=== PATIENT | female | born 1940 | race Caucasian/White ===

== ENCOUNTER 2019-12-14 14:23 | Emergency (ER) | payer MEDICARE, BC ==
[~2019-12-14 14:23] MED LIST: Iopamidol-370 76% 500 ML 1 ML ONE
[2019-12-14 14:59] LABS: Bilirubin Negative (Negative); Blood, Urine Negative (Negative); Clarity Clear (Clear); Glucose, Urine (Dipstick) Normal (Negative); Ketone, Urine Negative (Negative); Leukocyte Negative Leu/uL (Negative); Nitrite Negative (Negative); Protein, Urine (Dipstick) Negative (Neg-Trace); Specific Gravity, Urine 1.002 (1.002-1.036); Urobilinogen Normal mg/dL (Less than 2); pH, Urine 5.5 (5.0-9.0)
[2019-12-14 15:13] LABS: #Basophils 0.1 thou/uL (0.0-0.2); #Eosinphils 0.1 thou/uL (0.0-0.7); #Lymphocytes 1.3 thou/uL (1.20-3.40); #Monocytes 0.5 thou/uL (0.11-0.59); #Neutrophils 4.7 thou/uL (1.40-6.50); %Basophils 0.8 % (0.0-1.0); %Lymphocytes 18.9 % (21.0-51.0); %Neutrophils 70.3 % (42.0-75.0); Hemoglobin 14.9 g/dL (12.0-16.0); Mean Corpuscular HGB CONC 34.9 g/dL (32.0-36.0); Mean Corpuscular Hemoglobin 34.1 pg (27.0-31.0); Mean Corpuscular Volume 97.7 fL (78.0-98.0); Platelet Count 253 thou/uL (130-400); RBC Distribution Width 12.1 % (11.5-14.5); Red Blood Cell (RBC) Count 4.38 mill/uL (4.20-5.40); White Blood Cell (WBC) Count 6.7 thou/uL (4.8-10.8)
[2019-12-14 15:36] LABS: ALT (SGPT) 14 U/L (8-55); AST (SGOT) 20 U/L (5-34); Albumin 4.2 g/dL (3.4-4.8); Alkaline Phosphatase 106 U/L (40-110); Anion Gap 13 mmol/L (10-20); BUN (Urea Nitrogen) 13 mg/dL (9.8-20.1); Bilirubin, Total 0.9 mg/dL (0.2-1.2); Calc. Creatinine Clearance 0 mL/min (70-130); Calcium 8.9 mg/dL (7.8-10.44); Carbon Dioxide 25 mmol/L (23-31); Chloride 105 mmol/L (98-107); Estimated GFR-MDRD 56; Globulin 3.4 g/dL (2.4-3.5); Glucose 93 mg/dL (83-110); Potassium 3.4 mmol/L (3.5-5.1); Protein, Total 7.6 g/dL (6.0-8.3); Sodium 140 mmol/L (136-145)
--- NOTE | 2019-12-14 16:38 | CT ---
CT Abdomen Pelvis W Con History: Injury Comparison: CT abdomen and pelvis 2009 Findings: Mild scarring lung bases. No pericardial effusion. Nondisplaced right L1 transverse process fracture. No SI joint widening. Obturator rings are intact. Left femoral head and neck is intact. Intact right hip arthroplasty. [place] effect of the intrahepatic and extrahepatic biliary system. Prior cholecystectomy. Spleen a nd pancreas unremarkable along with the adrenal glands. No acute renal injury. Extensive diverticular disease sigmoid colon without active current inflammation. No mesenteric hematoma. No acute lumbar spine fracture. No acute traumatic facet joint widening. Mode rate narrowing of the L3-L5 interspinous space. Impression: 1. Nondisplaced right L1 transverse process fracture. 2. Mild bibasilar pulmonary fibrosis. 3. No evidence for solid organ injury within the abdomen or pelvis. 4. Very faint edema within the distal small bowel mesentery felt to be chronic given the similar appe arance back in 2009.
== END 2019-12-14 17:59 | disposition home or self-care (01) ==
LOC: ERS 14:23
DX: S22.42XA Multiple fractures of ribs, left side, initial encounter for closed fracture (principal); S32.019A Unspecified fracture of first lumbar vertebra, initial encounter for closed fracture; I10 Essential (primary) hypertension; Z87.891 Personal history of nicotine dependence; V80.010A Animal-rider injured by fall from or being thrown from horse in noncollision accident, initial encounter
CPT/HCPCS: 74177; 80053; 81003; 85025; 87086; Q9967

== ENCOUNTER 2020-05-13 10:17 | Outpatient (CLI) | payer MEDICARE, BC ==
[2020-05-13 12:12] LABS: #Basophils 0.1 10x3/uL (0.0-0.2); #Eosinphils 0.1 10x3/uL (0.0-0.5); #Monocytes 0.4 10x3/uL (0.0-1.1); #Neutrophils 4.9 10x3/uL (1.5-8.4); %Basophils 0.7 % (0.0-2.0); %Eosinophils 1.5 % (0.0-6.0); %Lymphocytes 18.5 % (18.0-47.0); %Monocytes 6.1 % (0.0-10.0); %Neutrophils 72.9 % (40.0-75.0); Hemoglobin 13.8 g/dL (12.0-15.5); Mean Corpuscular HGB CONC 32.6 g/dL (32.0-36.0); Mean Corpuscular Hemoglobin 31.5 pg (27.0-33.0); Mean Corpuscular Volume 96.6 fl (81.6-98.3); Mean Platelet Volume 9.5 fl (7.4-10.4); Platelet Count 308 10x3/uL (150-450); RBC Distribution Width 12.8 % (11.5-14.5); Red Blood Cell (RBC) Count 4.38 10x6/uL (3.90-5.03); White Blood Cell (WBC) Count 6.7 10x3/uL (3.5-10.5)
[2020-05-13 18:22] LABS: SARS-CoV-2 PCR by NAA Not Detected (NotDetected)
== END 2020-05-13 10:18 | disposition home or self-care (01) ==
LOC: LABBT 10:17
PROVIDERS: ATTEND Orthopaedic Surgery Hand Surgery
DX: Z01.818 Encounter for other preprocedural examination (principal); M20.012 Mallet finger of left finger(s); Z20.822 Contact with and (suspected) exposure to COVID-19
CPT/HCPCS: 85025; 93005; U0003; U0005; 87635; 93010

== ENCOUNTER 2020-05-18 09:37 | Day surgery (SDC) | payer MEDICARE, BC ==
[2020-05-14 13:12] VITALS: BMI 24.1
[2020-05-18] MEDS ORDERED: Fentanyl 100 MCG/2 ML VIAL ONE (13:46)
[2020-05-18] MEDS ORDERED: PROPOFOL 200 MG/20 ML VIAL ONE (13:49)
[2020-05-18] MEDS ORDERED: PHENYLEPHRINE-NS 100 MCG/ML 10 ML SYRINGE ONE (13:49)
[2020-05-18] MEDS ORDERED: ePHEDrine 50 MG/ML VIAL ONE (13:49)
[2020-05-18] MEDS ORDERED: Ondansetron PF 4 MG/2 ML Vial ONE (13:49)
[2020-05-18] MEDS ORDERED: Dexamethasone 20 MG/5 ML VIAL ONE (13:49)
[2020-05-18] MEDS ORDERED: Lidocaine 1% PF 5 ML VIAL ONE (13:49)
[2020-05-18] MEDS ORDERED: Betamet Acet/Betamet Na Ph 30 MG/5 ML VIAL ONE (14:12)
[2020-05-18] MEDS ORDERED: Sodium Chloride 0.9% 10 ML ONE (14:12)
[2020-05-18] MEDS ORDERED: Bacitracin Zinc Ointment 30 gm TUBE ONE (14:12)
== END 2020-05-18 16:50 | disposition home or self-care (01) ==
LOC: SDC 09:37
PROVIDERS: ATTEND Orthopaedic Surgery Hand Surgery
PROC: 0LQ70ZZ Repair Right Hand Tendon, Open Approach (ICD-10-PCS; principal; 2020-05-18)
DX: M20.011 Mallet finger of right finger(s) (principal); S66.314A Strain of extensor muscle, fascia and tendon of right ring finger at wrist and hand level, initial encounter; S62.605A Fracture of unspecified phalanx of left ring finger, initial encounter for closed fracture; Z87.891 Personal history of nicotine dependence; Z88.5 Allergy status to narcotic agent; W55.19XA Other contact with horse, initial encounter
CPT/HCPCS: 76000; J0690; J0702; J1100; J2405; J2704; J3010; J3490

== ENCOUNTER 2021-12-14 10:22 | Inpatient (IN) | payer OTHER, MEDICARE, BC ==
[2021-12-14 10:42] LABS: #Eosinphils 0.2 thou/uL (0.0-0.7); #Monocytes 0.4 thou/uL (0.11-0.59); #Neutrophils 8.7 thou/uL (1.40-6.50); %Basophils 0.3 % (0.0-1.0); %Eosinophils 1.8 % (0.0-10.0); %Lymphocytes 9.9 % (21.0-51.0); %Monocytes 3.4 % (0.0-10.0); %Neutrophils 84.6 % (42.0-75.0); Hemoglobin 12.5 g/dL (12.0-16.0); Mean Corpuscular Hemoglobin 33.7 pg (27.0-31.0); Platelet Count 301 thou/uL (130-400); RBC Distribution Width 13.2 % (11.5-14.5); Red Blood Cell (RBC) Count 3.72 mill/uL (4.20-5.40); White Blood Cell (WBC) Count 10.3 thou/uL (4.8-10.8)
[2021-12-14 10:54] LABS: ALT (SGPT) 31 U/L (8-55); AST (SGOT) 34 U/L (5-34); Albumin 3.5 g/dL (3.4-4.8); Alkaline Phosphatase 83 U/L (40-110); Anion Gap 13 mmol/L (10-20); BUN (Urea Nitrogen) 13 mg/dL (9.8-20.1); Bilirubin, Total 0.7 mg/dL (0.2-1.2); Calc. Creatinine Clearance 0 mL/min (70-130); Calcium 8.3 mg/dL (7.8-10.44); Carbon Dioxide 23 mmol/L (23-31); Chloride 108 mmol/L (98-107); Estimated GFR 63; Globulin 2.8 g/dL (2.4-3.5); Glucose 156 mg/dL (83-110); Lipase 8 U/L (8-78); Potassium 3.7 mmol/L (3.5-5.1); Protein, Total 6.3 g/dL (5.8-8.1); Sodium 140 mmol/L (136-145)
[2021-12-14] MEDS ORDERED: Morphine 4 MG/ML VIAL ONE (11:25)
[2021-12-14] MEDS ORDERED: Ondansetron PF 4 MG/2 ML Vial ONE ×2 (11:25→17:03)
[2021-12-14 13:44] LABS: Phosphorus 2.7 mg/dL (2.3-4.7)
[2021-12-14] MEDS ORDERED: Ketorolac Tromethamine 30 MG/ML VIAL ONE (13:44)
[2021-12-14 13:45] LABS: Magnesium 1.6 mg/dL (1.6-2.6)
[2021-12-14 13:45] LABS: SARS-CoV-2 NAA Rapid Test DETECTED (NotDetected)
[2021-12-14] MEDS: Ketorolac Tromethamine 30 MG/ML VIAL IVP SCH ×2 (13:45→20:54)
[2021-12-14] MEDS ORDERED: Iopamidol 370 76% 50 ML VIAL FS ONE (14:30)
[2021-12-14] MEDS ORDERED: Ondansetron ODT 4 MG TAB PO PRN (15:54)
[2021-12-14] MEDS ORDERED: Dextrose 50% Abboject 50 ML SYRINGE SLOW IVP PRN (15:54)
[2021-12-14] MEDS ORDERED: Dextrose 5% in Water 1,000 ML IV PRN (15:54)
[2021-12-14] MEDS ORDERED: Morphine 2 MG/ML VIAL SLOW IVP PRN (15:54)
[2021-12-14] MEDS ORDERED: hydrALAZINE 20 MG/ML VIAL SLOW IVP PRN (15:54)
[2021-12-14] MEDS ORDERED: Ondansetron PF 4 MG/2 ML Vial IVP PRN (15:54)
[2021-12-14] MEDS ORDERED: Magnesium 2 GM/50 ML(in water) 2 GM in Premix Bag 1 BAG IVPB SCH (16:00)
[2021-12-14] MEDS ORDERED: TETANUS, DIPHTHERIA TOX,ADULT (TDVAX) 0.5 ML VIAL IM ONE (17:00)
[2021-12-14] MEDS ORDERED: Pantoprazole 40 MG VIAL IVP SCH (17:00)
[2021-12-14] MEDS ORDERED: Pantoprazole 40 MG VIAL ONE (17:15)
[2021-12-14] MEDS ORDERED: Potassium Phosphate 30 MMOL, Magnesium Sulfate 2 GM in Sodium Chloride 0.9% 250 ML IVPB SCH (17:15)
[2021-12-14] MEDS ORDERED: Acetaminophen W/ Codeine 5 ML UDCUP PO PRN (17:21)
[2021-12-14] MEDS ORDERED: Acetaminophen W/ Codeine 5 ML UDCUP PO SCH (17:30)
[2021-12-14 21:39] VITALS: BMI 23.6
[2021-12-15] MEDS: Acetaminophen W/ Codeine 5 ML UDCUP PO SCH ×7 (00:42→21:48)
[2021-12-15] MEDS: Ketorolac Tromethamine 30 MG/ML VIAL IVP SCH (00:43)
[2021-12-15 04:29] LABS: #Lymphocytes 1.2 thou/uL (1.20-3.40); #Monocytes 0.8 thou/uL (0.11-0.59); #Neutrophils 9.7 thou/uL (1.40-6.50); %Basophils 0.1 % (0.0-1.0); %Eosinophils 0.2 % (0.0-10.0); %Lymphocytes 10.4 % (21.0-51.0); %Monocytes 6.4 % (0.0-10.0); %Neutrophils 82.9 % (42.0-75.0); Hemoglobin 10.5 g/dL (12.0-16.0); Mean Corpuscular HGB CONC 32.5 g/dL (32.0-36.0); Mean Corpuscular Hemoglobin 33.7 pg (27.0-31.0); Mean Platelet Volume 7.5 fL (7.4-10.4); Platelet Count 193 thou/uL (130-400); RBC Distribution Width 13.5 % (11.5-14.5); Red Blood Cell (RBC) Count 3.11 mill/uL (4.20-5.40); White Blood Cell (WBC) Count 11.7 thou/uL (4.8-10.8)
[2021-12-15 04:39] LABS: Anion Gap 16 mmol/L (10-20); BUN (Urea Nitrogen) 22 mg/dL (9.8-20.1); Calc. Creatinine Clearance 42 mL/min (70-130); Calcium 8.2 mg/dL (7.8-10.44); Carbon Dioxide 18 mmol/L (23-31); Chloride 108 mmol/L (98-107); Estimated GFR 51; Glucose 138 mg/dL (83-110); Magnesium 2.4 mg/dL (1.6-2.6); Phosphorus 5.6 mg/dL (2.3-4.7); Potassium 5.4 mmol/L (3.5-5.1); Sodium 137 mmol/L (136-145)
[2021-12-15] MEDS ORDERED: Sodium Chloride 0.9% 500 ML IV SCH (07:00)
[2021-12-15] MEDS ORDERED: Polyethylene Glycol 3350 17 GM Packet PO SCH (09:00)
[2021-12-15] MEDS ORDERED: Pantoprazole 40 MG VIAL IVP SCH (09:00)
[2021-12-15] MEDS: Polyethylene Glycol 3350 17 GM Packet PO SCH (09:10)
[2021-12-15] MEDS: Senokot S 8.6-50 MG TAB PO SCH ×2 (09:11→21:49)
[2021-12-15 12:39] LABS: Anion Gap 19 mmol/L (10-20); BUN (Urea Nitrogen) 23 mg/dL (9.8-20.1); Calc. Creatinine Clearance 40 mL/min (70-130); Calcium 8.2 mg/dL (7.8-10.44); Carbon Dioxide 14 mmol/L (23-31); Chloride 108 mmol/L (98-107); Estimated GFR 47; Glucose 163 mg/dL (83-110); Potassium 4.7 mmol/L (3.5-5.1); Sodium 136 mmol/L (136-145)
[2021-12-15] MEDS ORDERED: Sodium Chloride 0.9% 1,000 ML IV SCH (13:15)
[2021-12-15 15:13] LABS: Bacteria/HPF None Seen HPF (None Seen); Bilirubin Negative (Negative); Blood, Urine 1+ (Negative); Clarity Clear (Clear); Glucose, Urine (Dipstick) Normal (Negative); Ketone, Urine Negative (Negative); Leukocyte Negative Leu/uL (Negative); Nitrite Negative (Negative); Protein, Urine (Dipstick) 20 mg/dL (Neg-Trace); Squamous Epithelial 0-3 HPF (0-3); Urobilinogen Normal mg/dL (Less than 2); WBC/HPF 0-3 HPF (0-3)
[2021-12-15 15:14] LABS: Specific Gravity, Urine 1.061 (1.002-1.036)
[2021-12-15 15:15] LABS: Urine Culture Reflex No No
[2021-12-15] MEDS: Cyclobenzaprine 10 MG TAB PO PRN (21:49)
[2021-12-16] MEDS: Acetaminophen W/ Codeine 5 ML UDCUP PO SCH ×7 (02:00→23:26)
[2021-12-16] MEDS ORDERED: Morphine 2 MG/ML VIAL SLOW IVP SCH (09:30)
[2021-12-16] MEDS: Senokot S 8.6-50 MG TAB PO SCH ×2 (09:50→21:28)
[2021-12-16] MEDS: Polyethylene Glycol 3350 17 GM Packet PO SCH (09:50)
[2021-12-16] MEDS: Cyclobenzaprine 10 MG TAB PO PRN (13:29)
[2021-12-16] MEDS ORDERED: Gabapentin 300 MG CAP PO SCH ×2 (17:06→21:00)
[2021-12-16] MEDS ORDERED: Gabapentin 100 MG CAP PO SCH (17:45)
[2021-12-17] MEDS: Acetaminophen W/ Codeine 5 ML UDCUP PO SCH ×3 (05:05→12:23)
[2021-12-17 05:56] LABS: #Eosinphils 0.3 thou/uL (0.0-0.7); #Monocytes 0.3 thou/uL (0.11-0.59); %Basophils 0.4 % (0.0-1.0); %Eosinophils 4.4 % (0.0-10.0); %Lymphocytes 15.3 % (21.0-51.0); %Monocytes 4.3 % (0.0-10.0); %Neutrophils 75.6 % (42.0-75.0); Hemoglobin 7.2 g/dL (12.0-16.0); Mean Corpuscular HGB CONC 33.3 g/dL (32.0-36.0); Mean Corpuscular Hemoglobin 34.8 pg (27.0-31.0); Mean Platelet Volume 7.4 fL (7.4-10.4); Platelet Count 124 thou/uL (130-400); RBC Distribution Width 13.2 % (11.5-14.5); Red Blood Cell (RBC) Count 2.08 mill/uL (4.20-5.40); White Blood Cell (WBC) Count 6.6 thou/uL (4.8-10.8)
[2021-12-17 06:14] LABS: Anion Gap 12 mmol/L (10-20); BUN (Urea Nitrogen) 20 mg/dL (9.8-20.1); Calc. Creatinine Clearance 55 mL/min (70-130); Calcium 8.2 mg/dL (7.8-10.44); Carbon Dioxide 24 mmol/L (23-31); Chloride 105 mmol/L (98-107); Estimated GFR 71; Glucose 109 mg/dL (83-110); Phosphorus 3.8 mg/dL (2.3-4.7); Potassium 4.5 mmol/L (3.5-5.1); Sodium 136 mmol/L (136-145)
[2021-12-17] MEDS ORDERED: Ferrous Sulfate 325 MG TAB PO SCH (08:00)
[2021-12-17 08:05] LABS: #Eosinphils 0.4 thou/uL (0.0-0.7); #Lymphocytes 1.2 thou/uL (1.20-3.40); #Monocytes 0.4 thou/uL (0.11-0.59); #Neutrophils 7.1 thou/uL (1.40-6.50); %Basophils 0.1 % (0.0-1.0); %Eosinophils 4.2 % (0.0-10.0); %Lymphocytes 13.4 % (21.0-51.0); %Monocytes 4.4 % (0.0-10.0); %Neutrophils 77.9 % (42.0-75.0); Mean Corpuscular HGB CONC 32.3 g/dL (32.0-36.0); Mean Corpuscular Hemoglobin 33.4 pg (27.0-31.0); Mean Platelet Volume 7.4 fL (7.4-10.4); Platelet Count 143 thou/uL (130-400); RBC Distribution Width 13.3 % (11.5-14.5); Red Blood Cell (RBC) Count 2.09 mill/uL (4.20-5.40); White Blood Cell (WBC) Count 9.1 thou/uL (4.8-10.8)
[2021-12-17] MEDS ORDERED: Ascorbic Acid 500 mg Chewable Tablet PO SCH (09:00)
[2021-12-17 09:08] VITALS: BP 106/71; TEMP 97.7
[2021-12-17] MEDS: Gabapentin 100 MG CAP PO SCH ×2 (09:33→18:13)
[2021-12-17] MEDS: Senokot S 8.6-50 MG TAB PO SCH (09:34)
[2021-12-17] MEDS: Polyethylene Glycol 3350 17 GM Packet PO SCH (09:34)
== END 2021-12-17 15:20 | DRG 963 ==
LOC: ERS 10:22 → ERHOLD 12:04 → IMCU/EMU 19:39 → SURG B 12-15 20:37
PROVIDERS: ADMIT Surgery; ATTEND Surgery
PROC: 0T9B70Z Drainage of Bladder with Drainage Device, Via Natural or Artificial Opening (ICD-10-PCS; principal; 2021-12-16)
DX: S06.6X1A Traumatic subarachnoid hemorrhage with loss of consciousness of 30 minutes or less, initial encounter (principal); U07.1 COVID-19; S27.0XXA Traumatic pneumothorax, initial encounter; S22.42XA Multiple fractures of ribs, left side, initial encounter for closed fracture; S32.592A Other specified fracture of left pubis, initial encounter for closed fracture; R40.2142 Coma scale, eyes open, spontaneous, at arrival to emergency department; R40.2362 Coma scale, best motor response, obeys commands, at arrival to emergency department; R40.2252 Coma scale, best verbal response, oriented, at arrival to emergency department; V80.010A Animal-rider injured by fall from or being thrown from horse in noncollision accident, initial encounter; Y93.52 Activity, horseback riding; S33.2XXA Dislocation of sacroiliac and sacrococcygeal joint, initial encounter; Z28.311 Partially vaccinated for COVID-19; I10 Essential (primary) hypertension; Z87.891 Personal history of nicotine dependence; Z98.51 Tubal ligation status; Z96.641 Presence of right artificial hip joint; Z90.49 Acquired absence of other specified parts of digestive tract; Z98.890 Other specified postprocedural states; Z98.49 Cataract extraction status, unspecified eye; K44.9 Diaphragmatic hernia without obstruction or gangrene; E87.5 Hyperkalemia; Y92.009 Unspecified place in unspecified non-institutional (private) residence as the place of occurrence of the external cause; Z88.5 Allergy status to narcotic agent
CPT/HCPCS: 36415; 70450; 71045; 71260; 72125; 72170; 74177; 80048; 80053; 81001; 83690; 83735; 84100; 85025; 90471; 93005; 94640; 94760; 96374; 96375; C9113; G0390; J1885; J2270; J2405; J3475; J7030; J7050; J7620; Q9967; U0002

== ENCOUNTER 2022-01-30 12:34 | Outpatient (CLI) | payer MEDICARE, BC | END 2022-01-30 12:35 | disposition home or self-care (01) | LOC: BICCT 12:34 | PROVIDERS: ATTEND Physician Assistant Surgical | DX: S22.069A Unspecified fracture of T7-T8 vertebra, initial encounter for closed fracture (principal); I60.9 Nontraumatic subarachnoid hemorrhage, unspecified; R10.2 Pelvic and perineal pain; S32.9XXD Fracture of unspecified parts of lumbosacral spine and pelvis, subsequent encounter for fracture with routine healing | CPT/HCPCS: 70450; 72072; 72170 ==

== ENCOUNTER 2023-09-05 08:41 | Outpatient (CLI) | payer MEDICARE | END 2023-09-05 08:42 | disposition home or self-care (01) | LOC: BICMAMMO 08:41 | PROVIDERS: ATTEND Internal Medicine | DX: Z12.31 Encounter for screening mammogram for malignant neoplasm of breast (principal); N63.21 Unspecified lump in the left breast, upper outer quadrant | CPT/HCPCS: 77063; 77067 ==

== ENCOUNTER 2023-09-11 08:18 | Outpatient (CLI) | payer MEDICARE | END 2023-09-11 08:19 | disposition home or self-care (01) | LOC: BICMAMMO 08:18 | PROVIDERS: ATTEND Internal Medicine | DX: N63.21 Unspecified lump in the left breast, upper outer quadrant (principal) | CPT/HCPCS: 76642; 77065; G0279 ==

== ENCOUNTER → 2023-09-18 | Day surgery (SDC) | payer MEDICARE | LOC: BICULT 12:37 | PROVIDERS: ATTEND Internal Medicine | PROC: 0HB5XZX Excision of Chest Skin, External Approach, Diagnostic (ICD-10-PCS; principal; 2023-09-18) | DX: C50.412 Malignant neoplasm of upper-outer quadrant of left female breast (principal); R92.8 Other abnormal and inconclusive findings on diagnostic imaging of breast | CPT/HCPCS: 19083; 88305; 88341; 88342 ==

== ENCOUNTER 2024-12-22 14:25 | Observation (INO) | payer MEDICARE ==
[~2024-12-22 14:25] MED LIST changes: -Iopamidol-370 76% 500 ML 1 ML ONE; +Iopamidol-370 76% 500 ML MDV (1 ML CHARGE) ONE
[2024-12-22 15:56] LABS: #Basophils Less than 0.03 10x3/uL (0.0-0.2); #Eosinophils 0.06 10x3/uL (0.0-0.7); #Monocytes 0.42 10x3/uL (0.11-0.59); #Neutrophils 3.92 10x3/uL (1.40-6.50); %Basophils 0.4 % (0.0-1.0); %Eosinophils 1.1 % (0.0-10.0); %Lymphocytes 18.7 % (21.0-51.0); %Monocytes 7.7 % (0.0-10.0); %Neutrophils 71.9 % (42.0-75.0); Hematocrit 41.3 % (36.0-47.0); Hemoglobin 13.5 g/dL (12.0-16.0); Mean Corpuscular Hemoglobin 30.9 pg (27.0-31.0); Mean Corpuscular Volume 94.5 fL (78.0-98.0); Platelet Count 297 10x3/uL (130-400); Red Blood Cell (RBC) Count 4.37 mill/uL (4.20-5.40); White Blood Cell (WBC) Count 5.45 10x3/uL (4.8-10.8)
[2024-12-22 16:10] LABS: INR-International Normal Ratio 1.0; Prothrombin Time 13.4 sec (12.0-14.7)
[2024-12-22 16:11] LABS: PTT 31.1 sec (22.9-36.1)
[2024-12-22 16:17] LABS: ALT (SGPT) 14 U/L (Less than 34); AST (SGOT) 34 U/L (11-34); Albumin 3.7 g/dL (3.1-4.5); Alkaline Phosphatase 85 U/L (40-110); Anion Gap 15 mmol/L (10-20); BUN (Urea Nitrogen) 23 mg/dL (9.8-20.1); Bilirubin, Total 0.4 mg/dL (0.3-1.2); Calc. Creatinine Clearance 0 mL/min (70-130); Calcium 9.2 mg/dL (7.8-10.44); Carbon Dioxide 25 mmol/L (23-31); Chloride 100 mmol/L (98-107); Globulin 4.1 g/dL (2.4-3.5); Glucose 92 mg/dL (83-110); Potassium 3.9 mmol/L (3.5-5.1); Sodium 136 mmol/L (136-145)
[2024-12-22] MEDS ORDERED: Acetaminophen 325 MG TAB PO PRN (18:06)
[2024-12-22] MEDS ORDERED: Ondansetron PF 4 MG/2 ML Vial IVP PRN (18:06)
[2024-12-22] MEDS: Aspirin Chewable 81 MG TAB PO SCH (19:30)
[2024-12-22] MEDS ORDERED: Aspirin Chewable 81 MG TAB ONE (19:46)
[2024-12-22] MEDS ORDERED: PNEUMOC 20-VAL CONJ-DIP CRM/PF 0.5 ML SYRINGE IM ONE (20:00)
[2024-12-22] MEDS ORDERED: FLU (Fluad Triv) 25-26 (65UP)PF 45 MCG/0.5 ML Syringe IM ONE (20:00)
[2024-12-22 23:46] VITALS: BMI 21.0
[2024-12-23 04:00] LABS: #Basophils 0.05 10x3/uL (0.0-0.2); #Eosinophils 0.09 10x3/uL (0.0-0.7); #Monocytes 0.55 10x3/uL (0.11-0.59); #Neutrophils 3.63 10x3/uL (1.40-6.50); %Basophils 0.9 % (0.0-1.0); %Eosinophils 1.5 % (0.0-10.0); %Lymphocytes 25.6 % (21.0-51.0); %Monocytes 9.5 % (0.0-10.0); %Neutrophils 62.3 % (42.0-75.0); Hematocrit 40.4 % (36.0-47.0); Hemoglobin 13.1 g/dL (12.0-16.0); Mean Corpuscular Hemoglobin 31.0 pg (27.0-31.0); Mean Corpuscular Volume 95.7 fL (78.0-98.0); Platelet Count 262 10x3/uL (130-400); Red Blood Cell (RBC) Count 4.22 mill/uL (4.20-5.40); White Blood Cell (WBC) Count 5.82 10x3/uL (4.8-10.8)
[2024-12-23 04:20] LABS: ALT (SGPT) 12 U/L (Less than 34); AST (SGOT) 23 U/L (11-34); Albumin 3.3 g/dL (3.1-4.5); Alkaline Phosphatase 68 U/L (40-110); Anion Gap 14 mmol/L (10-20); BUN (Urea Nitrogen) 19 mg/dL (9.8-20.1); Bilirubin, Total 0.5 mg/dL (0.3-1.2); Calc. Creatinine Clearance 43 mL/min (70-130); Calcium 9.2 mg/dL (7.8-10.44); Carbon Dioxide 22 mmol/L (23-31); Cardiac Risk 6.7 (Less than 4.5); Chloride 106 mmol/L (98-107); Cholesterol 215 mg/dl (< 200 Desired); Globulin 3.6 g/dL (2.4-3.5); Glucose 87 mg/dL (83-110); HDL Cholesterol 32 mg/dL (>60 Neg Risk); LDL Cholesterol, Calculated 165 mg/dL; Potassium 4.0 mmol/L (3.5-5.1); Sodium 138 mmol/L (136-145); Triglycerides 92 mg/dL (Less than 150)
[2024-12-23] MEDS: Enoxaparin 40 MG (0.4 mL) SYRINGE SC SCH (08:27)
[2024-12-23 16:27] VITALS: BP 125/78
[2024-12-23 17:21] VITALS: TEMP 97.7
== END 2024-12-23 18:27 | disposition home health service (06) ==
LOC: ERS 14:25 → ERHOLD 18:06 → 2SE 23:43
PROVIDERS: ADMIT Internal Medicine; ATTEND Student in an Organized Health Care Education/Training Program
DX: G51.0 Bell's palsy (principal); K44.9 Diaphragmatic hernia without obstruction or gangrene; E78.5 Hyperlipidemia, unspecified
CPT/HCPCS: 0042T; 70450; 70496; 70498; 70553; 76376; 80053 ×2; 80061; 82962; 83036; 84484; 85025 ×2; 85610; 85730; 93005; 94760; 96372; 97116; 97530; 99285; G0378 ×3; J1650; Q9967; 36415; 36416